=== PATIENT | male | born 1960 | race Caucasian/White ===

== ENCOUNTER 2017-03-06 09:26 | Emergency (ER) | payer BC ==
[2017-03-06 09:45] VITALS: BP 168/105; PULSE 110; RESP 18; TEMP 98.2; O2SAT 92
--- NOTE | 2017-03-06 10:03 | UCPHY ---
H & P Time Seen by Provider: 03/06/17 09:48 Patient Type: New HPI/ROS: CHIEF COMPLAINT: Right hand infection HPI: The patient is a 56-year-old male with a history of insulin-dependent diabetes. He is visiting here from [place]. Few days ago he noted what he took to be an insect bite to the lateral right hand. Since that time, the area has grown more tender, red and painful. He denies fever. He describes mild discharge from the wound. REVIEW OF SYSTEMS: Aside from elements discussed in the HPI, a comprehensive 10-point review of systems was reviewed and is negative. PMH: Diabetes, hypertension. SOCIAL HISTORY: Lives in [place]. Works in [employer]. FAMILY HISTORY: Reviewed, noncontributory PHYSICAL EXAM: General:Patient is alert, in no acute distress. Skin: An area of erythema and fluctuance measuring approximately 3 cm in diameter is present on the left lateral dorsal hand. There is well circumscribed erythema. No erythema outside the hand. Distal capillary refill and motor nerve function is intact. Extremities: Normal appearance. Full range of motion. Neuro: Oriented x3. Normal motor function. Normal sensory function. Smoking Status: Heavy smoker Constitutional: Initial Vital Signs Temperature (C) 36.8 C 03/06/17 09:40 Heart Rate 110 H 03/06/17 09:40 Respiratory Rate 18 03/06/17 09:40 Blood Pressure 168/105 H 03/06/17 09:40 O2 Sat (%) 92 03/06/17 09:40 O2 Delivery Mode Room Air Allergies/Adverse Reactions: No Known Allergies Allergy (Unverified 03/06/17 09:45) Home Medications: Medication Instructions Recorded Cephalexin [Keflex] 500 mg PO Q6H #28 cap 03/06/17 HCTZ (*) 03/06/17 Insulin Regular Human 03/06/17 Metformin HCl 03/06/17 MDM/Departure - MDM ED Course/Re-evaluation: ED abscess incision and drainage: I anesthetized the area with a small amount of lidocaine and using 11 blade to cut a small hole. Minimal pus was expressed. The patient tolerated the procedure well. This patient presents with early abscess/cellulitis to an area on his right dorsal hand. He is at elevated risk of complication secondary to diabetes. I will place the patient on a week-long course of Keflex. I have sent a swab to determine if this represents MRSA.. There is no fever or signs of systemic toxicity. - Depart Disposition: Home, Routine, Self-Care Clinical Impression: Cellulitis Condition: Good Instructions: Cellulitis (ED) Additional Instructions: Return to the Emergency Department for fever, redness, discharge from wound, increasing pain or other worsening of condition. Prescriptions: Cephalexin [Keflex] 500 mg PO Q6H #28 cap Referrals: NONE *PRIMARY CARE P,. [Primary Care Provider] - As per Instructions - PQRS PQRS Measurement: 134: Depression screening and followup, PRIME MD-PHQ2 (12 years and older) Over the last 2 weeks, how often have you been bothered by any of the following problems? 1. Feeling down, depressed, or hopeless? 2. Little interest or pleasure in doing things? Patient answered no to both 1 and 2 130: Documentation of medications. Reviewed all patient medications, doses, route and frequency. 226: Do you smoke? yes 51: 18 years old and older with diagnosis of COPD, spirometry performance. Spirometry not performed; equipment not available. Patient has no history of COPD 52: 18 years old and older with COPD and symptoms of COPD or FEV1<60% predicted prescribed a B Agonist. Spirometry not performed; equipment not available.
== END 2017-03-06 10:15 | disposition home or self-care (01) ==
LOC: CED 09:26
PROC: 0H9FXZZ Drainage of Right Hand Skin, External Approach (ICD-10-PCS; principal; 2017-03-06)
DX: L03.113 Cellulitis of right upper limb (principal); E11.9 Type 2 diabetes mellitus without complications; I10 Essential (primary) hypertension
CPT/HCPCS: 99203-PO; G0463-PO